=== PATIENT | male | born 1985 ===

== ENCOUNTER 2017-07-07 07:27 | Outpatient (CLI) | payer BC | END 2017-07-07 07:28 | disposition home or self-care (01) | LOC: BICULT 07:27 | PROVIDERS: ATTEND Family Medicine | DX: M62.82 Rhabdomyolysis (principal) | CPT/HCPCS: 76700 ==

== ENCOUNTER 2019-09-01 07:45 | Outpatient (CLI) | payer BC ==
--- NOTE | 2019-09-01 08:25 | ULT ---
ABDOMINAL ULTRASOUND HISTORY: Epigastric abdominal pain and nausea. FINDINGS: Liver: Within normal limits. Gallbladder: No gallbladder calculi are visualized. There is no gallbladder wall thickening or perich olecystic fluid. Common duct: Common duct is normal in caliber measuring 0.4 cm in diameter. Pancreas: The limited visualized pancreas demonstrates a normal sonographic appearance. IVC: Limited visualized IVC has a normal sonographic appearance. Aorta: The aorta is normal in caliber. Spleen: Within normal limits. Kidneys: Kidneys demonstrate a normal sonographic appearance bilaterally with the right kidney measur ing 10.6 cm in length, and the left kidney measures 9.6 cm in length. IMPRESSION: Abdominal ultrasound is within normal limits. No gallbladder calculi are seen. Abdominal ultrasound e xamination is unchanged compared to study on 07/07/2017.
== END 2019-09-01 07:46 | disposition home or self-care (01) ==
LOC: BICULT 07:45
PROVIDERS: ATTEND Internal Medicine
DX: R10.13 Epigastric pain (principal); R11.0 Nausea
CPT/HCPCS: 93975

== ENCOUNTER 2019-09-25 07:16 | Outpatient (CLI) | payer BC ==
--- NOTE | 2019-09-25 12:17 | NM ---
EXAM: NM Gastric Empty Scan W/Meal DATE: 09/25/2019 12:00 AM INDICATION: Nausea and epigastric abdominal pain COMPARISON: None. FINDIN.1 mCi of technetium 99m sulfur colloid orally was administered in egg. At the 30 minute time silas there is 4% gastric emptying. At the 1 hour time silas there is 32% emptyin g. At the 2 hour time silas there is 64% emptying. At the 3 hour time silas there is 87% emptying. At the 4 hour time silas there is 100% emptying. The one half gastric emptying time is 94 minutes. IMPRESSION:Gastric emptying evaluation as above.
== END 2019-09-25 07:17 | disposition home or self-care (01) ==
LOC: NM 07:16
PROVIDERS: ATTEND Internal Medicine
DX: R10.13 Epigastric pain (principal); R11.0 Nausea
CPT/HCPCS: 78264; A9541

== ENCOUNTER 2021-08-07 07:45 | Outpatient (CLI) | payer BC | END 2021-08-07 07:46 | disposition home or self-care (01) | LOC: NM 07:45 | PROVIDERS: ATTEND Family Medicine | DX: R10.11 Right upper quadrant pain (principal) | CPT/HCPCS: 78227; A9537 ==

== ENCOUNTER 2021-09-05 07:52 | Outpatient (CLI) | payer BC | END 2021-09-05 07:53 | disposition home or self-care (01) | LOC: ULT 07:52 | PROVIDERS: ATTEND Family Medicine | DX: R10.11 Right upper quadrant pain (principal) | CPT/HCPCS: 76705 ==